=== PATIENT | male | born 1930 | race Asian ===

== ENCOUNTER 2016-06-22 21:11 | Emergency (ER) | payer BC ==
[~2016-06-22] VITALS: Ht 172.7 cm; Wt 63.5 kg
[~2016-06-22 21:11] MED LIST: ACETAMINOPHEN325 M1 ORAL; ASPIRIN81 MG ORAL; COLACE100 MG ORAL; Diltiazem Hcl ORAL; FLOMAX0.4 MG ORAL; LEXAPRO10 MG ORAL; LIPITOR20 MG ORAL; PROTONIX40 MG ORAL; UNOBMED
[2016-06-22 22:50] VITALS: BP 146/86
[2016-06-23 00:30] VITALS: BP 150/84
--- NOTE | 2016-06-23 03:18 | Emergency Room Report ---
History of Present Illness General Chief Complaint: Multiple Trauma/Fall Source: Patient Present Illness HPI 85-year-old male presents ED status post fall. Per EMS patient had ground level trip and fall at his custodial today. No reported LOC. Patient is awake alert oriented x2 which is his baseline. Patient is DO NOT RESUSCITATE as per EMS. Upon arrival patient showing no signs of distress. No nausea or vomiting. Patient is unable to any additional history at this time. No other aggravating relieving factors. Denies any other associated symptoms Allergies: Coded Allergies: No Known Allergies (Unverified , 10/02/15) Patient History Past Medical History: HTN, dementia Past Surgical History: none Pertinent Family History: none Social History: Denies: alcohol use, drug use, smoking Immunizations: UTD Reviewed Nursing Documentation: PMH: Agreed, PSxH: Agreed Nursing Documentation-PMH Hx Cardiac Problems: Yes - CAD,HYPERLIPIDEMIA Hx Hypertension: Yes Hx Cancer: No Hx Gastrointestinal Problems: No Hx Neurological Problems: Yes - P[place]INSONS Review of Systems All Other Systems: negative except mentioned in HPI Physical Exam Vital Signs Date Time Temp Pulse Resp B/P Pulse Ox O2 Delivery O2 Flow Rate FiO2 06/22/16 21:11 98.1 72 18 136/76 96 Room Air Sp02 EP Interpretation: reviewed, normal General Appearance: lethargic, thin, other - AAOX2 Head: normocephalic Eyes: bilateral eye PERRL, bilateral eye normal inspection ENT: hearing grossly normal, normal pharynx, no angioedema, normal voice Neck: normal inspection Respiratory: chest non-tender, lungs clear, normal breath sounds, speaking full sentences Cardiovascular #1: regular rate, rhythm, no edema Gastrointestinal: normal inspection Rectal: deferred Genitourinary: no CVA tenderness Musculoskeletal: normal inspection Neurologic: other - AAOX2 Psychiatric: other - AAOX2 Skin: normal inspection Lymphatic: normal inspection Medical Decision Making Diagnostic Impression: Primary Impression: Head injury Qualified Codes: S09.90XA - Unspecified injury of head, initial encounter ER Course Hospital Course 85-year-old male presents ED with witnessed fall and head injury. No LOC Differential diagnoses include: skull fx, intracranial injury, concussion Clinical course Patient placed on stretcher. After initial history and physical I ordered CT head CT head shows no acute process. Discussed findings with son and he agreed that patient can be discharged back to SNF Diagnosis - head injury Stable and discharged to SNF. Followup with PMD. Return to ED if symptoms recur or worsen CT/MRI/US Diagnostic Results CT/MRI/US Diagnostic Results : Imaging Test Ordered: CT Head Impression no acute process Last Vital Signs Date Time Temp Pulse Resp B/P Pulse Ox O2 Delivery O2 Flow Rate FiO2 06/23/16 00:30 98.2 72 17 150/84 100 Room Air Status: improved Disposition: XFER SNF Condition: Stable Referrals: NON PHYSICIAN (PCP) Patient Instructions: Head Injury, Adult, [id number] KATIE MOSES M.D. Jun 23, 2016 03:18
--- NOTE | 2016-06-23 09:31 | Diagnostic Imaging Report ---
Indication: FALL, posterior head pain Technique: spiral acquisitions obtained through the brain. Angled axial and coronal 5 x 5 mm slices were reconstructed. No IV contrast utilized. Radiation dose was minimized using automated exposure control Total dose length product 1611 mGycm. CTDIvol(s) 70 mGy Comparison: 10/02/2015 FINDINGS: No acute hemorrhage or edema. No mass effect or midline shift. There is age-related enlargement of the ventricles and extra axial CSF spaces. There is periventricular deep white matter ischemic change. Normal pate-white differentiation. Visualized orbits are unremarkable. Visualized sinuses are unremarkable. Intact calvarium. Is encephalomalacia of the left posterior parietal, also evident previously. There is new finding of encephalomalacia of the left occipital lobe. There is resultant ex vacuo dilatation of the occipital horn the left lateral ventricle. IMPRESSION: Chronic and age-related changes. Negative for acute intracranial bleed or mass effect Old left parietal infarct, also evident previously Left occipital encephalomalacia, consistent with old infarct which is nonetheless new since the previous study This agrees with the preliminary interpretation provided overnight by [facility]erad[facility] service. The CT scanner at [facility] is accredited by the [employer] and the scans are performed using protocols designed to limit radiation exposure to as low as reasonably achievable to attain images of sufficient resolution adequate for diagnostic evaluation
== END 2016-06-23 00:30 ==
LOC: EDBD 21:11 → EMR 21:44
DX: S09.90XA Unspecified injury of head, initial encounter (principal); I10 Essential (primary) hypertension; I25.10 Atherosclerotic heart disease of native coronary artery without angina pectoris; E78.5 Hyperlipidemia, unspecified; G20 Parkinson's disease; F02.80 Dementia in other diseases classified elsewhere, unspecified severity, without behavioral disturbance, psychotic disturbance, mood disturbance, and anxiety; Z66 Do not resuscitate; W01.0XXA Fall on same level from slipping, tripping and stumbling without subsequent striking against object, initial encounter; Y92.129 Unspecified place in nursing home as the place of occurrence of the external cause; Y99.8 Other external cause status
CPT/HCPCS: 70450; 99284